=== PATIENT | male | born 1960 | race Caucasian/White ===

== ENCOUNTER 2016-10-10 11:34 | Emergency (ER) | payer OTHER ==
[~2016-10-10] VITALS: Ht 180.3 cm; Wt 78.1 kg
[~2016-10-10 11:34] MED LIST: BACTRIM,SEPT1 TABLET PO; CLINDAMYCIN HC300 MG PO; FLOMAX0.4 MG PO; GLIPIZIDE5 MG; GLUCOPHAGE500 MG PO; PERCOCET 5/31 TABLET PO; PERCOCET 7.51 TABLET PO; ZOFRAN ODT8 MG PO; ZOFRAN4 MG PO; [UNRECOGNIZED DRUG - OTHER]
[2016-10-10] MEDS ORDERED: BACTRIM,SEPT1 TABLET PO (13:34)
[2016-10-10] MEDS ORDERED: MOTRIN800 MG PO (13:35)
[2016-10-10 14:00] VITALS: BP 131/90
== END 2016-10-10 14:01 | disposition home or self-care (01) ==
LOC: EME 11:34
PROC: 0H91X0Z Drainage of Face Skin with Drainage Device, External Approach (ICD-10-PCS; principal; 2016-10-10)
DX: L02.01 Cutaneous abscess of face (principal); Z88.0 Allergy status to penicillin
CPT/HCPCS: 99281; 99283

== ENCOUNTER 2016-10-12 08:24 | Emergency (ER) | payer OTHER ==
[~2016-10-12] VITALS: Ht 180.3 cm; Wt 81.9 kg
[~2016-10-12 08:24] MED LIST changes: +MOTRIN800 MG PO
[2016-10-12] MEDS ORDERED: KEFLEX500 MG PO (09:46)
[2016-10-12] MEDS ORDERED: BACTRIM,SEPT1 TABLET PO (09:46)
[2016-10-12 10:22] VITALS: BP 133/80
== END 2016-10-12 10:22 | disposition home or self-care (01) ==
LOC: EME 08:24
DX: L02.01 Cutaneous abscess of face (principal); L03.211 Cellulitis of face; Z48.01 Encounter for change or removal of surgical wound dressing
CPT/HCPCS: 99281; 99282

== ENCOUNTER 2017-02-15 15:59 | Emergency (ER) | payer OTHER ==
[~2017-02-15] VITALS: Ht 180.3 cm; Wt 85.4 kg
[~2017-02-15 15:59] MED LIST changes: +KEFLEX500 MG PO
[2017-02-15 16:41] LABS: ADD MIUA? YES; BILIRUBIN NEGATIVE; BLOOD LARGE; COLOR YELLOW ((YELLOW)); GLUCOSE (STRIP) >=500; KETONES NEGATIVE; LEUKOCYTES NEGATIVE; NITRITE NEGATIVE; PROTEIN (STRIP) 100; SPECIFIC GRAVITY 1.029 (1.000-1.030); UROBILINOGEN 0.2 MG/DL (0.2-1.0)
[2017-02-15 17:08] LABS: RED BLOOD CELLS TNTC /HPF (0-5); WHITE BLOOD CELLS 0-5 /HPF (0-5)
[2017-02-15 17:09] LABS: BACTERIA 1+ /HPF; EPITHELIAL CELLS NONE SEEN /HPF; MUCUS NONE SEEN /LPF
[2017-02-15 17:45] LABS: EOSINOPHIL COUNT 0.1 K/uL (0-0.3); HEMATOCRIT 38.9 % (38.0-50.0); IMMATURE GRANULOCYTE (%) 0.3 % (0.0-0.7); INSTRUMENT ABS NEUTROPHIL CT 4.8 K/uL; LYMPHOCYTE COUNT 1.1 K/uL (1.0-2.8); MCH 28.5 PG (29.0-34.0); MCHC 33.9 G/DL (30.0-36.0); MEAN PLAT.VOLUME 13.1 uM^3 (9.0-12.4); MONOCYTE (%) 7.6 % (3-12); MONOCYTE COUNT 0.5 K/uL (0-0.8); NEUTROPHIL (%) 73.3 % (45-76); NEUTROPHIL COUNT 4.8 K/uL (1.8-6.4); PLATELET COUNT 114 K/uL (156-360); RBC DIS.WIDTH-CV 12.8 % (11.8-14.6); RBC DIS.WIDTH-SD 39.2 % (39-53); RED BLOOD COUNT 4.63 M/uL (4.00-5.50); WHITE BLOOD COUNT 6.5 K/uL (4.1-10.2)
[2017-02-15 17:53] LABS: CHLORIDE 99 mEq/L (99-109); SODIUM 132 mEq/L (136-147)
[2017-02-15 17:56] LABS: ANION GAP 7 MEQ/L (2-14)
[2017-02-15 17:59] LABS: GFR ESTIMATE (CALCULATED) > 59 mL/min/
[2017-02-15 18:00] LABS: UREA NITROGEN (BUN) 21 mg/dL (9-23)
[2017-02-15] MEDS ORDERED: NORCO 5/3251 TABLET PO (18:01)
[2017-02-15] MEDS ORDERED: ZOFRAN ODT8 MG PO (18:01)
[2017-02-15 18:17] LABS: GLUCOSE 534 mg/dL (70-99)
[2017-02-15 18:26] VITALS: BP 125/76
== END 2017-02-15 18:28 | disposition home or self-care (01) ==
LOC: EME 15:59
PROVIDERS: Physician Assistant
DX: N13.2 Hydronephrosis with renal and ureteral calculous obstruction (principal); R31.9 Hematuria, unspecified; E11.9 Type 2 diabetes mellitus without complications; Z79.84 Long term (current) use of oral hypoglycemic drugs; Z87.442 Personal history of urinary calculi
CPT/HCPCS: 74176; 80048; 81003; 85025; 99281; 99284; J1885

== ENCOUNTER 2017-03-18 07:57 | Outpatient (CLI) | payer OTHER ==
[~2017-03-18] VITALS: Ht 180.3 cm; Wt 84.0 kg
[~2017-03-18 07:57] MED LIST changes: +NORCO 5/3251 TABLET PO; +ZUBSOLV 8.6-2.1 EACH SL
[2017-03-18] MEDS ORDERED: PERCOCET 5/31 TABLET PO (09:35)
[2017-03-18 10:03] LABS: POINT-OF-CARE METER ID UU14174212
[2017-03-18 12:31] LABS: POINT-OF-CARE METER ID UU13113819; POINT-OF-CARE USER ID ADMKMM76
[2017-03-18 14:16] VITALS: BP 144/79
[2017-03-18 15:29] VITALS: BP 131/79
[2017-03-18 23:49] VITALS: BP 138/80
[2017-03-19 07:33] LABS: POINT-OF-CARE METER ID UU14149397
[2017-03-19 07:52] VITALS: BP 148/80
[2017-03-19 11:57] VITALS: BP 150/89
== END 2017-03-19 13:47 | disposition home or self-care (01) ==
LOC: AMB 07:57 → 2SOUTH 12:12 → 3EAST 13:45
PROVIDERS: Urology
PROC: 0TF4XZZ Fragmentation in Left Kidney Pelvis, External Approach (ICD-10-PCS; principal; 2017-03-18)
DX: N20.0 Calculus of kidney (principal); F11.20 Opioid dependence, uncomplicated; Z74.2 Need for assistance at home and no other household member able to render care; Z88.0 Allergy status to penicillin
CPT/HCPCS: 74010; 82948; 93005; G0378; J1170; J1885; J2250; J2405; J3010